=== PATIENT | male | born 1955 | race Caucasian/White ===

== ENCOUNTER → 2017-08-20 | Outpatient (CLI) | payer OTHER ==
[~2017-08-20] MED LIST: ASPIR 8181 MG; ASPIRIN EC81 MG PO; CIPRO500 MG PO; DOCUSATE SODIU100 MG PO; FISH OIL PO; METRONIDAZOLE500 MG PO; OXYBUTYNIN CHLO10 MG PO; PHENAZOPYRIDIN200 MG PO; TYLENOL WITH C1 EACH PO; VITAMIN PO
--- NOTE | 2017-08-20 17:33 | Diagnostic Imaging Report ---
PROCEDURE: Frontal and lateral views of the chest. COMPARISON: Patients [facility], , CHEST 2 VIEWS, 03/14/2016, 18:42. INDICATIONS: RIGHT KIDNEY CANCER FINDINGS: Lines/tubes: ASD closure device is seen. Lungs: The lungs are well inflated and clear. There is no evidence of pneumonia or pulmonary edema. Pleura: There is no pleural effusion or pneumothorax. Heart and mediastinum: The heart and the mediastinum are normal. Bones: No acute bony abnormality. Surgical clips projected on the upper abdomen posteriorly. IMPRESSION: 1. No acute thoracic abnormality. Penny Umanzor M.D. Dictated by: Penny Umanzor M.D. on 08/20/2017 at 17:35 Electronically approved by: Penny Umanzor M.D. on 08/20/2017 at 17:35
--- NOTE | 2017-08-20 17:35 | Diagnostic Imaging Report ---
PROCEDURE:X-RAY ABDOMEN - KUB COMPARISON:Patients [facility], DX, ABDOMEN-1VIEW (KUB), 01/14/2017, 17:38. INDICATIONS:RIGHT KIDNEY CANCER FINDINGS: There are no dilated loops of bowel to suggest obstruction. There are no masses or abnormal calcifications. There is no evidence of free air. No acute osseous abnormalities are present. Multiple surgical clips projected on the right flank. Degenerative changes of the lower lumbar spine. CONCLUSION: No acute abdominal abnormality. Penny Umanzor M.D. Dictated by: Penny Umanzor M.D. on 08/20/2017 at 17:37 Electronically approved by: Penny Umanzor M.D. on 08/20/2017 at 17:37
--- NOTE | 2017-08-20 18:18 | Diagnostic Imaging Report ---
EXAM: Renal Duplex Ultrasound INDICATION: NEOPLASM OF RT KIDNEY, RENAL CALCULUS COMPARISON: 12/18/2016. Correlation with CT abdomen dated 03/14/2016. TECHNIQUE: Color Doppler and waveform spectral analysis were obtained of the right and left kidneys. FINDINGS: Right Kidney: Length: 9.3 cm. Status post partial nephrectomy with defect in the lower pole of the right kidney. Appearance: Normal echogenicity. Collecting system: No hydronephrosis Stones: None Cyst/Mass: Anechoic lesion in the medial interpolar region of the right kidney measures 2.2 x 1.9 x 1.5 cm, consistent with a simple cyst previously measuring 1.8 x 1.8 x 1.5 cm. Hypoechoic area in the interpolar region of the right kidney measures 2.1 x 1.8 x 1.8 cm. No shadowing echogenic area in the posterior interpolar region of the right kidney measures approximately 2.9 x 2.2 x 3.0 cm, corresponding to an angiomyolipoma on the prior examination. Left Kidney: Length: 10.5 cm Appearance: Normal echogenicity. Collecting system: Mild hydronephrosis Stones: None Cyst/Mass: None Bladder: Normal IMPRESSION: 1. Mild left hydronephrosis appears stable compared to the prior exam. Punctate calculus previously present on the prior CT examination of 2016 is not clearly identified on today's exam. 2. Status post partial right nephrectomy. 3. 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 4. 2.2 cm right renal simple cyst. Signed by: Dr. Penny Umanzor M.D. on 08/20/2017 6:14 PM
== END ==
LOC: US 16:24
PROVIDERS: ATTEND Urology
DX: C64.1 Malignant neoplasm of right kidney, except renal pelvis (principal); N20.0 Calculus of kidney; N28.1 Cyst of kidney, acquired
CPT/HCPCS: 71046; 74018; 76770

== ENCOUNTER → 2018-03-03 | Outpatient (CLI) | payer OTHER ==
--- NOTE | 2018-03-03 16:52 | Diagnostic Imaging Report ---
EXAM: Renal Ultrasound COMPARISON: Renal ultrasound 08/20/2017; report but not images from CT 02/29/2016. TECHNIQUE: Transverse and longitudinal images of the kidneys and bladder were obtained. FINDINGS: Right Kidney: Size: 11.4 x 4.9 x 5.5 cm. Status post history of partial nephrectomy. Echogenicity: Normal Parenchymal thickness: Normal Collecting system: No hydronephrosis Stones: None Cyst/Mass: A 3.0 x 2.1 x 2.1 cm hyperechoic solid mass, similar to prior studies, corresponding to angiomyolipoma on prior exam. Simple appearing right upper pole renal cyst measuring up to 2.3 cm. Left Kidney: Size: 10.5 x 5.9 x 4.8 cm Echogenicity: Normal Parenchymal thickness: Normal Collecting system: Mild left hydronephrosis. Stones: Punctate calculus present on prior CT from 2016 is not well visualized by ultrasound. Cyst/Mass: Multiple left sided parapelvic simple appearing renal cysts measuring up to 2.4 cm. Bladder: Bladder is unremarkable in appearance. Bilateral ureteral jets are visualized. Prostate: Unremarkable in appearance. IMPRESSION: Status post history of right partial nephrectomy. No evidence of recurrent or residual disease. A 3 cm right renal angiomyolipoma is unchanged in appearance. Mild left hydronephrosis, unchanged. Simple appearing bilateral renal cysts. Signed by: Dr. Marshall West MD on 03/03/2018 4:48 PM
--- NOTE | 2018-03-03 17:01 | Diagnostic Imaging Report ---
EXAMINATION: CHEST 2 VIEWS INDICATION: ^MALIGNANT NEOPLASM OF KIDNEY COMPARISON: Chest radiograph 08/20/2017. FINDINGS: TUBES and LINES: None. LUNGS: Lungs are well inflated. Lungs are clear. There is no evidence of pneumonia or pulmonary edema. PLEURA: No pleural effusion or pneumothorax. HEART AND MEDIASTINUM: The cardiomediastinal silhouette is unchanged. BONES AND SOFT TISSUES: No acute osseous lesion. Soft tissues are unremarkable. UPPER ABDOMEN: No free air under the diaphragm. IMPRESSION: No acute radiographic abnormality. Signed by: Dr. Marshall West MD on 03/03/2018 4:58 PM
--- NOTE | 2018-03-03 17:05 | Diagnostic Imaging Report ---
Exam: X-RAY ABDOMEN-KUB Comparison: KUB 08/20/2017. DISCUSSION: Surgical clips project over the right upper abdomen. There is a nonobstructive bowel gas pattern. There is no free intraperitoneal air. No calcifications overlying the urinary system are present. No acute bony findings. IMPRESSION: No acute radiographic abnormality. Signed by: Dr. Marshall West MD on 03/03/2018 5:02 PM
== END ==
LOC: US 14:55
PROVIDERS: ATTEND Urology
DX: C64.1 Malignant neoplasm of right kidney, except renal pelvis (principal); N20.0 Calculus of kidney
CPT/HCPCS: 71046; 74018; 76770

== ENCOUNTER → 2018-08-25 | Outpatient (CLI) | payer MEDICARE ==
--- NOTE | 2018-08-25 13:56 | Diagnostic Imaging Report ---
EXAM: Renal Ultrasound COMPARISON: Renal ultrasound 03/03/2018. TECHNIQUE: Transverse and longitudinal images of the kidneys and bladder were obtained. FINDINGS: Right Kidney: Size 10.1 x 5.3 x 4.7 cm. Status post history of partial nephrectomy. Echogenicity: Normal Parenchymal thickness: Normal Collecting system: No hydronephrosis Stones: None Cyst/Mass: A 2.4 x 1.6 x 2.1 cm hyperechoic solid mass, corresponding to angiomyolipoma on prior exam, previously measuring up to 3.0 cm. Simple appearing right upper pole renal cyst measuring up to 2.0 cm. Left Kidney: Size: 10.7 x 5.4 x 5.3 cm Echogenicity: Normal Parenchymal thickness: Normal Collecting system: Persistent mild left hydronephrosis. Stones: Punctate calculus present on prior CT from 2016 is not well visualized by ultrasound. Cyst/Mass: Multiple left sided parapelvic simple appearing renal cysts measuring up to 3.7 cm. Bladder: Bladder is unremarkable in appearance. Bilateral ureteral jets are visualized. Prostate: Unremarkable in appearance. IMPRESSION: Status post history of right partial nephrectomy. No evidence of recurrent or residual disease. A 2.4 cm right renal angiomyolipoma, slightly decreased in size from the prior study. Persistent mild left hydronephrosis. Simple appearing bilateral renal cysts. Signed by: Dr. Marshall West MD on 08/25/2018 1:53 PM
--- NOTE | 2018-08-25 14:20 | Diagnostic Imaging Report ---
EXAMINATION: CHEST 2 VIEWS INDICATION: Renal malignancy. COMPARISON: Chest radiograph 03/03/2018. FINDINGS: TUBES and LINES: None. LUNGS: Lungs are well inflated. Lungs are clear. There is no evidence of pneumonia or pulmonary edema. PLEURA: No pleural effusion or pneumothorax. HEART AND MEDIASTINUM: The cardiomediastinal silhouette is unchanged. Septal closure device is present. BONES AND SOFT TISSUES: No acute osseous abnormality. UPPER ABDOMEN: No free air under the diaphragm. IMPRESSION: No acute radiographic abnormality. Signed by: Dr. Marshall West MD on 08/25/2018 2:17 PM
--- NOTE | 2018-08-25 15:30 | Diagnostic Imaging Report ---
Exam: KUB - 2 view Comparison: KUB 03/03/2018. DISCUSSION: Surgical clips project over the right upper abdomen. There is a nonobstructive bowel gas pattern. There is no free intraperitoneal air. No calcifications overlying the urinary system are present. No acute bony findings. IMPRESSION: No acute radiographic abnormality. Signed by: Dr. Marshall West MD on 08/25/2018 3:27 PM
== END ==
LOC: US 12:57
PROVIDERS: ATTEND Urology
DX: C64.1 Malignant neoplasm of right kidney, except renal pelvis (principal); N20.0 Calculus of kidney
CPT/HCPCS: 71046; 74018; 76770

== ENCOUNTER → 2019-01-21 | Outpatient (CLI) | payer MEDICARE ==
--- NOTE | 2019-01-21 12:13 | Diagnostic Imaging Report ---
EXAM: Renal Ultrasound INDICATION: ^[id number] ^[id number] ^CYST OF KIDNEY COMPARISON: Renal ultrasound of 08/25/2018 TECHNIQUE: Transverse and longitudinal images of the kidneys and bladder were obtained. FINDINGS: Right Kidney: Length: 10.7 cm Appearance: Normal echogenicity. Collecting system: No hydronephrosis Stones: None Cyst/Mass: Unchanged mid pole anechoic simple cyst measures 2.0 x 1.8 x 1.8 cm (previously 2.0 cm). Hyperechoic lateral midpole mass measures 2.4 x 1.9 x 2.0 cm (previously 2.4 x 1.6 x 2.1 cm) and is most compatible with angiomyolipoma. Left Kidney: Length: 10.7 cm Appearance: Normal echogenicity. Collecting system: Minimal hydronephrosis Stones: Multiple echogenic foci measuring up to 4 mm with twinkle artifact. Cyst/Mass: Stable parapelvic cysts measure 3.6 x 1.3 x 1.8 cm (previously 3.7 cm) and 2.9 x 1.0 x 1.7 cm. Bladder: No mass or calculi. Bilateral ureteral jets visualized. Prevoid volume estimate of 391.2 cc. Prostate: The prostate measures 3.2 x 3.1 x 4.1 cm with volume estimate of 21.5 cc. IMPRESSION: Prior history of right partial nephrectomy. Stable bilateral renal cysts and right renal angiomyolipoma. Small 4 mm left renal calculi. Stable minimal left hydronephrosis. Signed by: Diana James MD on 01/21/2019 12:09 PM
--- NOTE | 2019-01-21 12:15 | Diagnostic Imaging Report ---
EXAMINATION: CHEST 2 VIEWS INDICATION: Renal malignancy COMPARISON: Chest radiograph 08/25/2018 FINDINGS: LINES/TUBES:None LUNGS:The lungs are well-inflated. No focal consolidation or pulmonary edema. No radiographically apparent pulmonary nodules. PLEURA:No pleural effusion or pneumothorax. MEDIASTINUM:The cardiomediastinal silhouette appears normal in size and shape. Unchanged septal closure device. BONES/SOFT TISSUES:No acute osseous injury. ABDOMEN:No free air under the diaphragm. Right upper quadrant surgical clips. IMPRESSION: No radiographically apparent pulmonary nodules. Signed by: Diana James MD on 01/21/2019 12:12 PM
--- NOTE | 2019-01-21 12:22 | Diagnostic Imaging Report ---
Exam: KUB - 2 views Indication: Renal malignancy Comparison: KUB of 08/17/2018 Findings: No radiographically apparent renal calculi. Surgical clips in the right abdomen. Nonobstructive bowel gas pattern. No free air. The partially visualized lung bases appear clear. Mild degenerative changes of the lower lumbar spine and both hip joints. Impression: No acute radiographic abnormality. Signed by: Diana James MD on 01/21/2019 12:19 PM
== END ==
LOC: US 10:35
PROVIDERS: ATTEND Urology
DX: N20.0 Calculus of kidney (principal)
CPT/HCPCS: 71046; 74018; 76770

== ENCOUNTER → 2019-07-27 | Outpatient (CLI) | payer MEDICARE ==
[~2019-07-27] MED LIST changes: +FLOMAX0.4 MG PO
--- NOTE | 2019-07-27 10:50 | Diagnostic Imaging Report ---
EXAM: CHEST 2 VIEWS DATE: 07/27/2019 9:45 AM INDICATION: Neoplasm of left kidney COMPARISON: 01/21/2019 FINDINGS: The trachea is midline. The lungs are symmetrically expanded without evidence for large focal consolidation, pneumothorax, or significant pleural effusion. The cardiomediastinal silhouette and pulmonary vasculature are within normal limits. Septal closure device again noted in stable position. No acute osseous abnormality is identified. IMPRESSION: No acute cardiopulmonary process or significant interval change identified from 01/21/2019. Signed by: Dr. Christopher Gunn MD on 07/27/2019 10:47 AM
--- NOTE | 2019-07-27 12:40 | Diagnostic Imaging Report ---
EXAM: US RENAL RETROPERITONEAL COMP DATE: 07/27/2019 10:13 AM INDICATION: Neoplasm kidney COMPARISON: 01/21/2019 FINDINGS: The right kidney is normal in size measuring 9.3 x 5.2 x 5.5 cm with cortical thickness of 1.9 cm. Cortical echogenicity is within normal limits. There is a unchanged simple cyst identified measuring up to 2.0 cm. The previously visualized hyperechoic lesion within the right kidney is not well appreciated on today's examination. There is no evidence for solid renal mass, hydronephrosis, or shadowing calculi. The left kidney is normal in size measuring 10.5 x 5.5 x 5.8 cm with cortical thickness of 1.8 cm. Cortical echogenicity is within normal limits. Stable appearing parapelvic cysts noted. Stable mild left-sided hydronephrosis again noted. There is no evidence for solid renal or shadowing calculi within the left kidney. The urinary bladder is unremarkable. Prevoid volume is 4 and 63 cc. Bilateral ureteral jets are noted. IMPRESSION: In this patient with history of prior partial right nephrectomy, there is no evidence for new solid renal mass to suggest recurrent/residual disease. Previously visualized right renal angiomyolipoma is not well appreciated on today's examination. Unchanged bilateral renal cysts and mild left hydronephrosis. Signed by: Dr. Christopher Gunn MD on 07/27/2019 12:37 PM
== END ==
LOC: US 09:32
PROVIDERS: ATTEND Urology
DX: D41.02 Neoplasm of uncertain behavior of left kidney (principal)
CPT/HCPCS: 71046; 76770

== ENCOUNTER → 2019-10-20 | Outpatient (CLI) | payer MEDICARE ==
--- NOTE | 2019-10-20 08:56 | Diagnostic Imaging Report ---
Exam: Abdominal film Clinical History: Calculus of kidney, reported history of partial right nephrectomy Comparison: Renal ultrasound 07/27/2019, abdominal radiograph 01/21/2019 DISCUSSION: The bowel gas pattern shows no dilated, air-filled loops of bowel. As before, multiple surgical clips project over the right renal shadow. No calcifications otherwise project over the renal shadows or expected ureteral or cysts. Linear radiodensities project over the expected region of the prostate. Regional skeletal structures are intact. IMPRESSION: Surgical clips projecting over the right renal shadow, presumably related to history of prior partial right nephrectomy. No plain film evidence of urolithiasis. Signed by: Dr. Trino Walker M.D. on 10/20/2019 8:52 AM
== END ==
LOC: RAD 08:21
PROVIDERS: ATTEND Urology
DX: N20.0 Calculus of kidney (principal)
CPT/HCPCS: 74018

== ENCOUNTER → 2020-01-24 | Outpatient (CLI) | payer MEDICARE ==
--- NOTE | 2020-01-24 14:14 | Diagnostic Imaging Report ---
Exam: CHEST 2 VIEWS Date: 01/24/2020 2:11 PM INDICATION: ^[id number] ^[id number] ^MALIG NEOP OF RT KIDNEY Comparison: 07/27/2019 FINDINGS: Lines/Tubes:Stable septal closure device. Lungs:The lungs are well inflated. No focal consolidation or pulmonary edema. Pleura:No pleural effusion. No pneumothorax. Heart/Mediastinum:The cardiomediastinal silhouette is normal in size and contour. Bones/Soft Tissues: No acute osseous abnormality. Upper abdomen: Unremarkable. IMPRESSION: Stable exam without acute intrathoracic process. Signed by: Marcin Nance MD on 01/24/2020 2:11 PM
--- NOTE | 2020-01-24 14:58 | Diagnostic Imaging Report ---
EXAM: Renal Ultrasound INDICATION: ^[id number] ^[id number] ^MALIG NEOP OF RT KIDNEY COMPARISON: 07/27/2019 TECHNIQUE: Transverse and longitudinal images of the kidneys and bladder were obtained. FINDINGS: Right Kidney: Length: 9.2 cm Appearance: Normal echogenicity. Partial nephrectomy changes are again noted. Collecting system: No hydronephrosis Stones: None Cyst/Mass: None Left Kidney: Length: 11.0 cm Appearance: Normal echogenicity. Collecting system: No hydronephrosis Stones: None Cyst/Mass: Stable. A pelvic cyst measuring up to 1.6 cm. Bladder: Normal IMPRESSION: Stable exam demonstrate partial right nephrectomy changes and left parapelvic cysts. Signed by: Marcin Nance MD on 01/24/2020 2:55 PM
== END ==
LOC: US 13:41
PROVIDERS: ATTEND Urology
DX: C64.1 Malignant neoplasm of right kidney, except renal pelvis (principal)
CPT/HCPCS: 71046; 76770

== ENCOUNTER → 2020-04-24 | Outpatient (CLI) | payer MEDICARE | LOC: RAD 11:42 | PROVIDERS: ATTEND Urology | DX: N20.0 Calculus of kidney (principal) | CPT/HCPCS: 74018 ==

== ENCOUNTER → 2020-08-04 | Outpatient (CLI) | payer MEDICARE | LOC: US 12:34 | PROVIDERS: ATTEND Urology | DX: C64.1 Malignant neoplasm of right kidney, except renal pelvis (principal) | CPT/HCPCS: 71046; 76770 ==

== ENCOUNTER → 2021-03-15 | Outpatient (CLI) | payer MEDICARE | LOC: US 13:51 | PROVIDERS: ATTEND Urology | DX: D41.00 Neoplasm of uncertain behavior of unspecified kidney (principal) | CPT/HCPCS: 74018; 76770 ==

== ENCOUNTER → 2021-03-28 | Day surgery (SDC) | payer MEDICARE ==
[2021-03-26 09:45] LABS: BASOPHILS % 0.6 % (0.0-1.0); EOSINOPHILS # (AUTO) 0.2 (0.0-0.4); EOSINOPHILS % 3.5 % (0.0-6.0); HEMATOCRIT 44.8 % (38.2-49.6); HEMOGLOBIN 15.3 g/dL (14.0-18.0); LYMPHOCYTES # (AUTO) 1.9 (1.0-3.2); LYMPHOCYTES % 30.3 % (18.0-39.1); MEAN CORPUSCULAR HEMOGLOBIN 31.7 pg (28-32); MEAN CORPUSCULAR HGB CONC 34.2 g/dL (31-35); MEAN CORPUSCULAR VOLUME 92.8 fL (81-99); MONOCYTES # (AUTO) 0.8 (0.2-0.8); NEUTROPHILS # (AUTO) 3.4 (2.1-6.9); NEUTROPHILS % 53.3 % (38.7-80.0); PLATELET COUNT 252 x10e3/uL (140-360); RED BLOOD COUNT 4.83 x10e6/uL (4.3-5.7); RED CELL DISTRIBUTION WIDTH 12.4 % (11.7-14.4)
[~2021-03-28] MED LIST changes: +COD LIVER OIL1 EAC1 PO; +EPHEDRINE SULFATE INJ 50 MG/ML VIAL ONE; +FENTANYL CITRATE/PF 100MCG/2 ML INJ ONE; +HYOSCYAMINE SULFATE 0.5 MG/ML INJ ONE; +MIDAZOLAM HCL 2 MG/2 ML VIAL ONE; +PROPOFOL IV EMULSION 10 MG/ML 20 ML VIAL ONE
[2021-03-28 16:15] VITALS: BP 114/70
== END | disposition home or self-care (01) ==
LOC: OR 11:01
PROVIDERS: ATTEND Internal Medicine Gastroenterology
DX: Z09 Encounter for follow-up examination after completed treatment for conditions other than malignant neoplasm (principal); D12.4 Benign neoplasm of descending colon; K52.9 Noninfective gastroenteritis and colitis, unspecified; K57.30 Diverticulosis of large intestine without perforation or abscess without bleeding; K64.8 Other hemorrhoids; I44.0 Atrioventricular block, first degree; I69.398 Other sequelae of cerebral infarction; H54.62 Unqualified visual loss, left eye, normal vision right eye; N40.0 Benign prostatic hyperplasia without lower urinary tract symptoms; R03.0 Elevated blood-pressure reading, without diagnosis of hypertension; Z01.810 Encounter for preprocedural cardiovascular examination; Z01.812 Encounter for preprocedural laboratory examination; Z20.822 Contact with and (suspected) exposure to COVID-19; Z79.899 Other long term (current) drug therapy; Z68.29 Body mass index [BMI] 29.0-29.9, adult; Z85.528 Personal history of other malignant neoplasm of kidney; Z87.442 Personal history of urinary calculi; Z87.891 Personal history of nicotine dependence
CPT/HCPCS: 36415; 45380; 85025; 93005; J1980; J2250; J2704; J3010; U0002

== ENCOUNTER → 2021-08-08 | Outpatient (CLI) | payer MEDICARE ==
[~2021-08-08] MED LIST changes: -EPHEDRINE SULFATE INJ 50 MG/ML VIAL ONE; -FENTANYL CITRATE/PF 100MCG/2 ML INJ ONE; -HYOSCYAMINE SULFATE 0.5 MG/ML INJ ONE; -MIDAZOLAM HCL 2 MG/2 ML VIAL ONE; -PROPOFOL IV EMULSION 10 MG/ML 20 ML VIAL ONE
== END ==
LOC: US 07:45
PROVIDERS: ATTEND Urology
DX: N20.0 Calculus of kidney (principal)
CPT/HCPCS: 71046; 74018; 76770

== ENCOUNTER → 2022-01-28 | Outpatient (CLI) | payer MEDICARE | LOC: US 11:41 | PROVIDERS: ATTEND Urology | DX: C64.1 Malignant neoplasm of right kidney, except renal pelvis (principal); N20.0 Calculus of kidney; N28.1 Cyst of kidney, acquired | CPT/HCPCS: 71046; 74018; 76770 ==

== ENCOUNTER → 2022-07-30 | Outpatient (CLI) | payer MEDICARE | LOC: US 11:40 | PROVIDERS: ATTEND Urology | DX: C64.1 Malignant neoplasm of right kidney, except renal pelvis (principal); N20.0 Calculus of kidney; N28.1 Cyst of kidney, acquired | CPT/HCPCS: 71046; 74018; 76770 ==

== ENCOUNTER → 2024-12-31 | Outpatient (REF) | payer MEDICARE ==
[~2024-12-31] MED LIST changes: +IOPAMIDOL 370 MG/ML 100 ML INFUS..BTL INJ ONE
[2024-12-31 14:38] LABS: EST GLOMERULAR FILTRATION RATE 95.0 ML/MIN (>=60)
== END ==
LOC: CT 13:46
PROVIDERS: ATTEND Urology
DX: C64.1 Malignant neoplasm of right kidney, except renal pelvis (principal)
CPT/HCPCS: 36415; 74178; 82565; 84520; Q9967